=== PATIENT | female | born 1985 | race American Indian/Alaskan Native ===

== ENCOUNTER 2021-08-13 21:01 | Emergency (ER) | payer OTHER ==
[2021-08-13 21:08] VITALS: BP 118/75
[2021-08-14] MEDS ORDERED: METOCLOPRAMIDE 10 MG TAB PO ONE (04:36)
[2021-08-14] MEDS ORDERED: diphenhydrAMINE 25 MG CAP PO ONE (04:36)
[2021-08-14] MEDS ORDERED: dexAMETHasone 20 MG/5 ML VIAL IM ONE (04:36)
[2021-08-14] MEDS ORDERED: ACETAMINOPHEN 500 MG TAB PO ONE (04:36)
--- NOTE | 2021-08-14 04:43 | Emergency Department Report ---
ED Headache HPI - General Chief Complaint: Headache Stated Complaint: HEADACHE Time Seen by Provider: 08/14/21 04:36 Source: patient - History of Present Illness Initial Comments: 6-year-old female history of migraine headaches who presents for cluster headache x1 week. This is usual migraine duration and intensity for this patient. There is no nausea no vomiting no photophobia. There is been no fall injury or trauma. Patient states out of seizure medication at this time. Timing/Duration: 1 week Quality: mild, moderate, severe, achy, constant, pressure, sharp, stabbing, throbbing, other Allergies/Adverse Reactions: Allergies No Known Allergies Allergy (Unverified 08/13/21 21:08) Home Medications: Ambulatory Orders DOXYCYCLINE Hyclate [Vibramycin CAP] 100 mg PO BID 02/07/13 Promethazine [Phenergan SUPPOS] 25 mg PO Q6HR PRN 02/07/13 Famotidine 1 tab PO PRN 02/13/13 ceFAZolin/NS 1 GM/50 ML [Ancef/Ns 1 gm/50 ml] 1 gm IV ONCE #1 vial.port 02/16/13 Ondansetron [Zofran] 4 mg PO ONCE #14 tablet 03/17/13 Famotidine [Pepcid] 20 mg PO BID #60 tablet 01/03/15 Ibuprofen [Motrin 800 MG tab] 800 mg PO TID PRN #30 tablet 01/03/15 traMADoL [Ultram 50 MG tab] 50 mg PO Q6HR PRN #20 tablet 01/03/15 Butalb/Acetamin/Caff 50-325-40 [Fioricet] 1 tab PO Q6HR PRN #20 tab 12/19/15 Ibuprofen [Motrin] 800 mg PO Q8HR PRN #30 tablet 12/19/15 Ondansetron [Zofran Odt] 4 mg PO Q8HR PRN #20 tab.rapdis 12/19/15 Acetaminophen [Acetaminophen TAB] 1,000 mg PO Q6HR PRN #60 tablet 08/14/21 Metoclopramide [Reglan] 10 mg PO Q8H PRN #30 tab 08/14/21 diphenhydrAMINE [Benadryl CAP] 25 mg PO Q8HR PRN #30 capsule 08/14/21 ED Review of Systems ROS: Stated complaint: HEADACHE Other details as noted in HPI Constitutional: denies: chills, fever Eyes: denies: eye pain, eye discharge, vision change ENT: denies: ear pain, throat pain Respiratory: denies: cough, shortness of breath, wheezing Cardiovascular: denies: chest pain, palpitations Endocrine: increased thirst Gastrointestinal: denies: abdominal pain, nausea, vomiting, diarrhea Genitourinary: denies: urgency, dysuria, discharge Musculoskeletal: denies: back pain, joint swelling, arthralgia Skin: denies: rash, lesions Neurological: denies: headache, weakness, paresthesias Psychiatric: denies: anxiety, depression Hematological/Lymphatic: denies: easy bleeding, easy bruising ED Past Medical Hx - Past Medical History Hx GERD: Yes Hx Seizures: No Hx Asthma: No Additional medical history: gallstones - Surgical History Hx Cholecystectomy: Yes (2012) - Social History Smoking Status: Never Smoker Substance Use Type: None - Medications Home Medications: Home Medications Medication Instructions Recorded Confirmed Last Taken Type DOXYCYCLINE Hyclate [Vibramycin 100 mg PO BID 02/07/13 03/17/13 Unknown History CAP] Promethazine [Phenergan SUPPOS] 25 mg PO Q6HR PRN 02/07/13 03/17/13 02/14/13 18:00 History Famotidine 1 tab PO PRN 02/13/13 03/17/13 02/16/13 07:54 History ceFAZolin/NS 1 GM/50 ML [Ancef/Ns 1 gm IV ONCE #1 vial.port 02/16/13 03/17/13 Unknown Rx 1 gm/50 ml] Ondansetron [Zofran] 4 mg PO ONCE #14 tablet 03/17/13 Unknown Rx Famotidine [Pepcid] 20 mg PO BID #60 tablet 01/03/15 Unknown Rx Ibuprofen [Motrin 800 MG tab] 800 mg PO TID PRN #30 tablet 01/03/15 Unknown Rx traMADoL [Ultram 50 MG tab] 50 mg PO Q6HR PRN #20 tablet 01/03/15 Unknown Rx Butalb/Acetamin/Caff 50-325-40 1 tab PO Q6HR PRN #20 tab 12/19/15 Unknown Rx [Fioricet] Ibuprofen [Motrin] 800 mg PO Q8HR PRN #30 tablet 12/19/15 Unknown Rx Ondansetron [Zofran Odt] 4 mg PO Q8HR PRN #20 tab.rapdis 12/19/15 Unknown Rx Acetaminophen [Acetaminophen TAB] 1,000 mg PO Q6HR PRN #60 tablet 08/14/21 Unknown Rx Metoclopramide [Reglan] 10 mg PO Q8H PRN #30 tab 08/14/21 Unknown Rx diphenhydrAMINE [Benadryl CAP] 25 mg PO Q8HR PRN #30 capsule 08/14/21 Unknown Rx ED Physical Exam - General Limitations: No Limitations General appearance: alert, in no apparent distress - Head Head exam: Present: normal inspection - Eye Eye exam: Present: normal appearance, PERRL, EOMI. Absent: conjunctival injection, nystagmus Pupils: Present: normal accommodation - ENT ENT exam: Present: normal orophraynx, mucous membranes moist, TM's normal bilaterally, normal external ear exam - Neck Neck exam: Present: normal inspection, full ROM. Absent: tenderness, lymphadenopathy, thyromegaly - Respiratory Respiratory exam: Present: normal lung sounds bilaterally. Absent: respiratory distress, wheezes, rales, rhonchi, stridor, chest wall tenderness - Cardiovascular Cardiovascular Exam: Present: regular rate, normal rhythm, normal heart sounds. Absent: systolic murmur, diastolic murmur, rubs, gallop - GI/Abdominal GI/Abdominal exam: Present: soft, normal bowel sounds. Absent: distended, tenderness, bruit, hernia - Rectal Rectal exam: Present: deferred - Extremities Exam Extremities exam: Present: normal inspection, full ROM, normal capillary refill - Back Exam Back exam: Present: normal inspection, full ROM, CVA tenderness (R). Absent: CVA tenderness (L), paraspinal tenderness - Neurological Exam Neurological exam: Present: alert, oriented X3, CN II-XII intact, normal gait, reflexes normal. Absent: motor sensory deficit - Expanded Neurological Exam Expanded Patient oriented to: Present: person, place, time Speech: Present: fluid speech Cranial nerves: EOM's Intact: Normal Motor strength exam: RUE: 5, LUE: 5, RLE: 5, LLE: 5 DTR: knee (R): 1+, knee (L): 1+ Best Eye Response (Dominguez): (4) open spontaneously Best Motor Response (Barnard): (6) obeys commands Best Verbal Response (Dominguez): (5) oriented Barnard Total: 15 - Psychiatric Psychiatric exam: Present: normal affect, normal mood - Skin Skin exam: Present: warm, dry, intact, normal color. Absent: rash ED Course Vital Signs 08/13/21 21:05 Temperature 98.9 F Pulse Rate 81 Respiratory 16 Rate Blood Pressure 118/75 [Right] O2 Sat by Pulse 99 Oximetry ED Medical Decision Making - Medical Decision Making Headache is resolved at this time plan DC to home, follow-up with primary care doctor in 2 to 3 days. Take all medications as prescribed. Patient verbalizes agreement and understanding with discharge plan. Patient DC'd home in stable condition at this time Critical care attestation.: If time is entered above; I have spent that time in minutes in the direct care of this critically ill patient, excluding procedure time. ED Disposition Clinical Impression: Headache Qualifiers: Headache type: unspecified Headache chronicity pattern: chronic headache Intractability: not intractable Qualified Code(s): R51.9 - Headache, unspecified; G89.29 - Other chronic pain Disposition: 01 HOME / SELF CARE / HOMELESS Is pt being admited?: No Does the pt Need Aspirin: No Condition: Stable Additional Instructions: Take medications as prescribed, follow-up with your doctor in 2 to 3 days. Return to the emergency department should symptoms worsen. Prescriptions: Acetaminophen [Acetaminophen TAB] 1,000 mg PO Q6HR PRN #60 tablet PRN Reason: Headache diphenhydrAMINE [Benadryl CAP] 25 mg PO Q8HR PRN #30 capsule PRN Reason: Headache Metoclopramide [Reglan] 10 mg PO Q8H PRN #30 tab PRN Reason: Headache Referrals: DONNA CAI MD [Referring] - 3-5 Days Forms: Work/School Release Form(ED) Time of Disposition: 06:15
== END 2021-08-14 06:20 | disposition home or self-care (01) ==
LOC: ED 21:01
DX: R51.9 Headache, unspecified (principal); K21.9 Gastro-esophageal reflux disease without esophagitis; Z79.899 Other long term (current) drug therapy
CPT/HCPCS: 96372; 99282; J1100